=== PATIENT | female | born 1955 | race Two or more races ===

== ENCOUNTER 2021-09-12 14:38 | Inpatient (IN) | payer OTHER ==
[~2021-09-12] VITALS: Ht 154.9 cm; Wt 66.7 kg
[2021-09-12] MEDS ORDERED: LEVOTHYROXINE25 MCG PO (16:57)
[2021-09-12] MEDS ORDERED: IRBESARTAN-HCT1 EAC1 PO (16:57)
[2021-09-12] MEDS ORDERED: VENLAFAXINE HC150 M1 PO (16:58)
[2021-09-19] MEDS ORDERED: ABANEU-SL TABL1 EACH (08:31)
[2021-09-19] MEDS ORDERED: VITAMIN E450 M1 (08:31)
== END 2021-09-19 08:45 | disposition home or self-care (01) | DRG 743 ==
LOC: O/R 09-17 05:30 → OB/GYN 09-17 05:30
PROVIDERS: ADMIT Obstetrics & Gynecology; ATTEND Obstetrics & Gynecology
PROC: 0UT70ZZ Resection of Bilateral Fallopian Tubes, Open Approach (ICD-10-PCS; 2021-09-17)
PROC: 0UT20ZZ Resection of Bilateral Ovaries, Open Approach (ICD-10-PCS; 2021-09-17)
PROC: 0UT90ZZ Resection of Uterus, Open Approach (ICD-10-PCS; principal; 2021-09-17 10:00)
DX: N87.1 Moderate cervical dysplasia (principal); N84.0 Polyp of corpus uteri; Z20.822 Contact with and (suspected) exposure to COVID-19; N83.291 Other ovarian cyst, right side; N83.292 Other ovarian cyst, left side